=== PATIENT | female | born 1980 | race Caucasian/White ===

== ENCOUNTER → 2023-12-15 11:47 | Outpatient (CLI) | payer OTHER, SELFPAY ==
--- NOTE | 2023-12-15 11:48 | DI.US.S_ITS ---
PROCEDURE: US OB FOLLOW UP INDICATIONS: GROWTH OUTSIDE/PRIOR DATING DATA: IVF 06/06/2023. Working AALIYAH is 02/22/2024 TECHNIQUE: Real-time scanning was performed of the fetus, with image documentation and biometric measurements. COMPARISON: None. FINDINGS: General: A single living intrauterine gestation is present. Presentation: Transverse. Placenta: Placental position is anterior , without previa. Amniotic fluid index: 13 cm, normal range is 5-24 cm. Single deepest vertical pocket is 5 cm. heart rate: 128 beats per minute. Maternal cervical canal: 4.3 cm long. Normal lower limit is 2.5 cm. biometrics: Biparietal diameter: 7.5 cm, 29 weeks and 6 days Head circumference: 27.9 cm, 30 weeks and 4 days Abdominal circumference: 24.7 cm, 29 weeks Femur length: 5.6 cm, 29 weeks and 4 days Clinically estimated gestational age: 30 weeks and 1 day Composite gestational age from present scan: 29 weeks and 5 days Estimated weight and percentile: 1381 g, 15% Other: Not applicable. IMPRESSION: EFW at the lower limit of normal, 15th percentile. Living intrauterine gestation, transverse presentation. Normal RJ. Dictated by: Nathan Kendall M.D. on 12/15/2023 at 12:33 Approved by: Nathan Kendall M.D. on 12/15/2023 at 12:34
== END ==
PROVIDERS: Referring Provider Obstetrics & Gynecology; Visit Provider Obstetrics & Gynecology
DX: Z34.03 Encounter for supervision of normal first pregnancy, third trimester (principal); Z3A.29 29 weeks gestation of pregnancy
CPT/HCPCS: 76816

== ENCOUNTER 2024-01-02 09:50 | Outpatient (CLI) | payer OTHER, SELFPAY | END 2024-01-02 10:30 | disposition home or self-care (01) | LOC: LABOR 10:30 → OB 01-08 11:40 | PROVIDERS: Referring Provider Obstetrics & Gynecology; Visit Provider Obstetrics & Gynecology | DX: O09.813 Supervision of pregnancy resulting from assisted reproductive technology, third trimester (principal); O09.523 Supervision of elderly multigravida, third trimester; Z3A.32 32 weeks gestation of pregnancy | CPT/HCPCS: 59025; G0378; G0379 ==

== ENCOUNTER 2024-01-10 11:56 | Outpatient (CLI) | payer OTHER, SELFPAY ==
--- NOTE | 2024-01-10 13:55 | PM.OBTRLD ---
FORMERLY [facility], [facility] Medical History (Updated 01/10/24 @ 16:07 by Tuan Faye MD) Yeast infection Surgical History (Updated 12/07/23 @ 14:37 by Katrin English, RN) [place] teeth extracted History of ankle surgery History of tonsillectomy and adenoidectomy Family History (Updated 12/07/23 @ 14:43 by Katrin English, RN) Mother Hypothyroidism Hypertension Uncle Diabetes mellitus Sister Hypertension Hypothyroidism Gestational diabetes Father Skin cancer Grandfather Melanoma Social History marital status: number of children: 0 household members: spouse lives independently: Yes caregiver/support person: Yes housing: house pets and animals: Yes (dog) education level: college (bachelor's degree) occupational status: employed (Active duty [employer]) current occupational exposures/hazards: No special cheyanne needs: No travel history: recent (Move from [place]) seatbelt use: always water heater temp set < 120 deg: Yes working smoke detector in home: Yes fire extinguisher in home: No carbon monox detector in home: Yes firearms in home: Yes firearms unloaded and locked: Yes do you feel safe at home: Yes Smoking Status: Former smoker (quit 2017) Tobacco: How many years used: 6 (off and on) second hand exposure: No alcohol intake: former (typically 1-2/week when not , occasionally more) substance use type: does not use during the past year weight has: remained stable (prior to ) well-balanced diet: daily or most days daily servings fruits/ve-4 caffeine: Yes (decaf coffee) Type(s) of exercise: walking frequency: daily Evaluation Evaluation Baseline heart rate: 120 Variability: Moderate (11-25) monitor accelerations: Present Monitor Decelerations: Absent Contraction Frequency (minutes): 0 Diagnosis, Plan/Disposition Plan/Disposition Plan: 43 yo presenting for NST for AMA and IVF NST reactive, reassuring Continue with testing and apts per primary OB OB Disposition: home
== END 2024-01-10 12:40 | disposition home or self-care (01) ==
LOC: LABOR 12:57 → OB 01-14 09:26
PROVIDERS: Referring Provider Obstetrics & Gynecology; Visit Provider Obstetrics & Gynecology
DX: O09.813 Supervision of pregnancy resulting from assisted reproductive technology, third trimester (principal); O09.523 Supervision of elderly multigravida, third trimester; Z3A.33 33 weeks gestation of pregnancy
CPT/HCPCS: 59025; G0378; G0379

== ENCOUNTER 2024-01-16 09:48 | Outpatient (CLI) | payer OTHER, SELFPAY | END 2024-01-16 10:30 | disposition home or self-care (01) | LOC: LABOR 10:01 → OB 01-17 12:50 | PROVIDERS: Referring Provider Obstetrics & Gynecology; Visit Provider Obstetrics & Gynecology | DX: O09.523 Supervision of elderly multigravida, third trimester (principal); O09.813 Supervision of pregnancy resulting from assisted reproductive technology, third trimester; Z3A.34 34 weeks gestation of pregnancy; O36.5930 Maternal care for other known or suspected poor fetal growth, third trimester, not applicable or unspecified | CPT/HCPCS: 59025; 76816; G0378; G0379 ==

== ENCOUNTER → 2024-01-16 11:08 | Outpatient (CLI) | payer OTHER, SELFPAY ==
--- NOTE | 2024-01-16 11:09 | DI.US.S_ITS ---
PROCEDURE: US OB FOLLOW UP INDICATIONS: SGA on prior study 12/15/2023 OUTSIDE/PRIOR DATING DATA: The calculations are made using the working AALIYAH of 02/22/2024. TECHNIQUE: Real-time scanning was performed of the fetus, with image documentation and biometric measurements. Endovaginal scanning: Not performed COMPARISON: [facility], OB FOLLOW UP, 12/15/2023, 12:08. FINDINGS: General: A single living intrauterine gestation is present. Presentation: Transverse. Placenta: Placental position is anterior, left , without previa. Amniotic fluid index: 15.9 cm, normal range is 5-24 cm. Single deepest vertical pocket is 5.1 cm. heart rate: 118 beats per minute. Maternal cervical canal: 4.6 cm long. Normal lower limit is 2.5 cm. biometrics: Biparietal diameter: 8.2 cm, 32 weeks 6 days Head circumference: 30.6 cm, 34 weeks 1 day Abdominal circumference: 29 cm, 33 weeks 0 days Femur length: 6.4 cm, 33 weeks 1 day Clinically estimated gestational age: 34 weeks 5 days Composite gestational age from present scan: 33 weeks 2 days Estimated weight and percentile: 2130 g, 11th percentile Other: Not applicable. IMPRESSION: Single living intrauterine at 34 weeks 5 days, AALIYAH of 02/22/2024. Estimated weight of 2130 g, 11th percentile. We strive to produce accurate, complete, and clear reports of imaging services. To assist us in improving patient care, this report was composed using standard report templates and voice recognition software. Therefore, it may contain abnormal punctuation, insertions and/or omissions. Occasional wrong-word or sound-alike substitutions may occur. Though we review the report and make efforts to correct it, we do recommend that the report be read carefully in proper context to recognize any text inaccuracies. Dictated by: Joss Klein M.D. on 01/16/2024 at 15:52 Approved by: Joss Klein M.D. on 01/16/2024 at 15:54
== END ==
PROVIDERS: Referring Provider Obstetrics & Gynecology; Visit Provider Obstetrics & Gynecology
DX: O36.5930 Maternal care for other known or suspected poor fetal growth, third trimester, not applicable or unspecified (principal); Z3A.34 34 weeks gestation of pregnancy
CPT/HCPCS: 76816

== ENCOUNTER → 2024-01-24 10:51 | Outpatient (CLI) | payer OTHER, SELFPAY ==
[2024-01-25 11:44] LABS: Strep Grp B PCR NEG for Grp B Strep
== END ==
PROVIDERS: Visit Provider Obstetrics & Gynecology
DX: Z34.83 Encounter for supervision of other normal pregnancy, third trimester (principal); Z3A.36 36 weeks gestation of pregnancy
CPT/HCPCS: 87653

== ENCOUNTER 2024-01-24 10:59 | Outpatient (CLI) | payer OTHER, SELFPAY | END 2024-01-24 12:46 | disposition home or self-care (01) | LOC: LABOR 11:23 → OB 01-25 11:39 | PROVIDERS: Referring Provider Obstetrics & Gynecology; Visit Provider Obstetrics & Gynecology | DX: O09.523 Supervision of elderly multigravida, third trimester (principal); O09.813 Supervision of pregnancy resulting from assisted reproductive technology, third trimester; Z3A.35 35 weeks gestation of pregnancy | CPT/HCPCS: 59025; 87653; G0378; G0379 ==

== ENCOUNTER 2024-01-26 09:32 | Outpatient (CLI) | payer OTHER, SELFPAY | END 2024-01-26 10:13 | disposition home or self-care (01) | LOC: LABOR 09:49 → OB 01-29 06:27 | PROVIDERS: Referring Provider Obstetrics & Gynecology; Visit Provider Obstetrics & Gynecology | DX: O09.523 Supervision of elderly multigravida, third trimester (principal); O09.813 Supervision of pregnancy resulting from assisted reproductive technology, third trimester; Z3A.36 36 weeks gestation of pregnancy | CPT/HCPCS: 59025; G0378; G0379 ==

== ENCOUNTER 2024-01-30 09:48 | Outpatient (CLI) | payer OTHER, SELFPAY | END 2024-01-30 10:19 | disposition home or self-care (01) | LOC: LABOR 10:04 → OB 02-06 08:28 | PROVIDERS: Referring Provider Obstetrics & Gynecology; Visit Provider Obstetrics & Gynecology | DX: O09.523 Supervision of elderly multigravida, third trimester (principal); O09.813 Supervision of pregnancy resulting from assisted reproductive technology, third trimester; Z3A.36 36 weeks gestation of pregnancy | CPT/HCPCS: 59025; G0378; G0379 ==

== ENCOUNTER 2024-02-02 09:49 | Outpatient (CLI) | payer OTHER, SELFPAY | END 2024-02-02 10:31 | disposition home or self-care (01) | LOC: LABOR 10:15 → OB 02-06 08:32 | PROVIDERS: Referring Provider Obstetrics & Gynecology; Visit Provider Obstetrics & Gynecology | DX: O09.523 Supervision of elderly multigravida, third trimester (principal); O09.813 Supervision of pregnancy resulting from assisted reproductive technology, third trimester; Z3A.37 37 weeks gestation of pregnancy | CPT/HCPCS: 59025; G0378; G0379 ==

== ENCOUNTER 2024-02-06 09:35 | Observation (INO) | payer OTHER, SELFPAY ==
--- NOTE | 2024-02-06 09:52 | DI.US.S_ITS ---
PROCEDURE: US OB LIMITED INDICATIONS: small baby OUTSIDE/PRIOR DATING DATA: IVF date: 06/06/2023 The calculations are made using the working AALIYAH of 02/22/2024 TECHNIQUE: Real-time scanning was performed of the fetus, with image documentation and biometric measurements. Endovaginal scanning: Not performed COMPARISON: [facility], OB FOLLOW UP, 12/15/2023, 12:08. [facility], OB FOLLOW UP, 01/16/2024, 11:19. FINDINGS: General: A single living intrauterine gestation is present. Presentation: Vertex Placenta: Placental position is anterior, without previa. Amniotic fluid index: 8.1 cm, normal range is 5-24 cm. Single deepest vertical pocket is 4.6 cm. heart rate: 153 beats per minute. Maternal cervical canal: Not well seen biometrics: Biparietal diameter: 8.7 cm, 35 weeks, 2 days. Head circumference: 32.5 cm, 36 weeks, 6 days. Abdominal circumference: 31.1 cm, 35 weeks, 0 day. Femur length: 6.8 cm, 35 weeks, 0 day. Clinically estimated gestational age: 37 weeks, 5 days Composite gestational age from present scan: 35 weeks, 4 days Estimated weight and percentile: 2625 g, 9%. IMPRESSION: 1. Single live intrauterine gestation with fetus in vertex presentation. heart rate is 153 beats per minute. Normal RJ at 8.1 cm. 2. Estimated gestational age is now at 9%. Estimated weight is 2625 g. We strive to produce accurate, complete, and clear reports of imaging services. To assist us in improving patient care, this report was composed using standard report templates and voice recognition software. Therefore, it may contain abnormal punctuation, insertions and/or omissions. Occasional wrong-word or sound-alike substitutions may occur. Though we review the report and make efforts to correct it, we do recommend that the report be read carefully in proper context to recognize any text inaccuracies. Dictated by: Elton Houston M.D. on 02/06/2024 at 11:20 Approved by: Elton Houston M.D. on 02/06/2024 at 11:25
--- NOTE | 2024-02-06 10:43 | PM.OBTRLD ---
Visit Information Visit Information Date of evaluation: 02/06/24 Primary OB Provider: Amena Larry On-call OB Provider: Tuan Faye Reason for Evaluation: Yes non-stress test Comments/Additional reasons for admission: 37+6 wk IVF preg, AMA, SGA/IUGR for NST and growth US. [facility] Medical History (Updated 01/10/24 @ 16:07 by Tuan Faye MD) Yeast infection Surgical History (Updated 12/07/23 @ 14:37 by Katrin English, RN) [place] teeth extracted History of ankle surgery History of tonsillectomy and adenoidectomy Family History (Updated 12/07/23 @ 14:43 by Katrin English, RN) Mother Hypothyroidism Hypertension Uncle Diabetes mellitus Sister Hypertension Hypothyroidism Gestational diabetes Father Skin cancer Grandfather Melanoma Social History marital status: number of children: 0 household members: spouse lives independently: Yes caregiver/support person: Yes housing: house pets and animals: Yes (dog) education level: college (bachelor's degree) occupational status: employed (Active duty [employer]) current occupational exposures/hazards: No special cheyanne needs: No travel history: recent (Move from [place]) seatbelt use: always water heater temp set < 120 deg: Yes working smoke detector in home: Yes fire extinguisher in home: No carbon monox detector in home: Yes firearms in home: Yes firearms unloaded and locked: Yes do you feel safe at home: Yes Smoking Status: Former smoker (quit 2017) Tobacco: How many years used: 6 (off and on) second hand exposure: No alcohol intake: former (typically 1-2/week when not , occasionally more) substance use type: does not use during the past year weight has: remained stable (prior to ) well-balanced diet: daily or most days daily servings fruits/ve-4 caffeine: Yes (decaf coffee) Type(s) of exercise: walking frequency: daily Objective Imaging OB Growth US: Radiologist's impression: FINDINGS: General: A single living intrauterine gestation is present. Presentation: Vertex Placenta: Placental position is anterior, without previa. Amniotic fluid index: 8.1 cm, normal range is 5-24 cm. Single deepest vertical pocket is 4.6 cm. heart rate: 153 beats per minute. Maternal cervical canal: Not well seen biometrics: Biparietal diameter: 8.7 cm, 35 weeks, 2 days. Head circumference: 32.5 cm, 36 weeks, 6 days. Abdominal circumference: 31.1 cm, 35 weeks, 0 day. Femur length: 6.8 cm, 35 weeks, 0 day. Clinically estimated gestational age: 37 weeks, 5 days Composite gestational age from present scan: 35 weeks, 4 days Estimated weight and percentile: 2625 g, 9%. IMPRESSION: 1. Single live intrauterine gestation with fetus in vertex presentation. heart rate is 153 beats per minute. Normal RJ at 8.1 cm. 2. Estimated gestational age is now at 9%. Estimated weight is 2625 g. Evaluation Evaluation Baseline heart rate: 135 Variability: Moderate (11-25) monitor accelerations: Present Monitor Decelerations: Absent Category of Tracing: Reactive Status: Category l Diagnosis, Plan/Disposition Final Diagnosis (1) SGA (small for gestational age), , affecting care of mother, antepartum: Status: Acute (2) Advanced maternal age (AMA), 40 years or greater: Status: Acute (3) conceived through in vitro fertilization: Status: Acute Plan/Disposition Plan: Continue twice weekly NSTs with weekly EFW/RJ. Her next ultrasound is scheduled for 02/12/2024 and she will return 02/08 for her next NST. Labor precautions and continued close observation of activity. Follow-up scheduled for her next [facility] visit. OB Disposition: home
== END 2024-02-06 10:40 | disposition home or self-care (01) ==
PROVIDERS: Admitting Provider Obstetrics & Gynecology; Referring Provider Obstetrics & Gynecology; Visit Provider Obstetrics & Gynecology
DX: O09.523 Supervision of elderly multigravida, third trimester (principal); O36.5930 Maternal care for other known or suspected poor fetal growth, third trimester, not applicable or unspecified; O09.813 Supervision of pregnancy resulting from assisted reproductive technology, third trimester; Z3A.37 37 weeks gestation of pregnancy
CPT/HCPCS: 59025; 76815; G0378; G0379

== ENCOUNTER 2024-02-09 08:44 | Outpatient (CLI) | payer OTHER, SELFPAY | END 2024-02-09 09:24 | disposition home or self-care (01) | LOC: OB 02-12 06:19 | PROVIDERS: Referring Provider Obstetrics & Gynecology; Visit Provider Obstetrics & Gynecology | DX: O09.523 Supervision of elderly multigravida, third trimester (principal); O09.813 Supervision of pregnancy resulting from assisted reproductive technology, third trimester; Z3A.38 38 weeks gestation of pregnancy | CPT/HCPCS: 59025; G0378; G0379 ==

== ENCOUNTER → 2024-02-12 14:47 | Outpatient (CLI) | payer OTHER, SELFPAY ==
--- NOTE | 2024-02-12 14:48 | DI.US.S_ITS ---
PROCEDURE: US OB LIMITED INDICATIONS: Interval growth, Known SGA OUTSIDE/PRIOR DATING DATA: The calculations are made using the AALIYAH of 02/22/2024. TECHNIQUE: Real-time scanning was performed of the fetus, with image documentation and biometric measurements. Endovaginal scanning: Not performed COMPARISON: [facility], OB LIMITED, 02/06/2024, 10:18. FINDINGS: General: A single living intrauterine gestation is present. Presentation: Vertex. Placenta: Placental position is anterior , without previa. Succentriate placental lobe with cord insertion between the 2 lobes. Amniotic fluid index: 8.4 cm, normal range is 5-24 cm. Single deepest vertical pocket is 2.8 cm. heart rate: 139 beats per minute. Maternal cervical canal: 3.7 cm long. Normal lower limit is 2.5 cm. biometrics: Biparietal diameter: 8.6 cm, 34 weeks 4 days Head circumference: 31.2 cm, 35 weeks 5 days Abdominal circumference: 30.5 cm, 34 weeks 3 days Femur length: 7.0 cm, 35 weeks 6 days Clinically estimated gestational age: 38 weeks 4 days Composite gestational age from present scan: 35 weeks 1 day Estimated weight and percentile: 2005 and 66 g, 3% Other: Cord Dopplers range from 1.8-3.2.. IMPRESSION: 1. Single live intrauterine consistent with 35 weeks and 1 day. 2. Estimated weight is in the 3rd percentile. 3. Succentriate placental lobe with cord insertion between the 2 lobes. We strive to produce accurate, complete, and clear reports of imaging services. To assist us in improving patient care, this report was composed using standard report templates and voice recognition software. Therefore, it may contain abnormal punctuation, insertions and/or omissions. Occasional wrong-word or sound-alike substitutions may occur. Though we review the report and make efforts to correct it, we do recommend that the report be read carefully in proper context to recognize any text inaccuracies. Dictated by: Jarrell Kelly M.D. on 02/12/2024 at 16:33 Approved by: Jarrell Kelly M.D. on 02/12/2024 at 16:37
== END ==
PROVIDERS: Referring Provider Obstetrics & Gynecology; Visit Provider Obstetrics & Gynecology
DX: O36.5930 Maternal care for other known or suspected poor fetal growth, third trimester, not applicable or unspecified (principal); O43.193 Other malformation of placenta, third trimester; Z3A.35 35 weeks gestation of pregnancy
CPT/HCPCS: 76815; 93975

== ENCOUNTER 2024-02-13 10:23 | Inpatient (IN) | payer OTHER, SELFPAY ==
[2024-02-13 11:14] LABS: Add Manual Diff / Slide Review NO; Basophils Absolute Auto 100 /uL (0-100); Basophils Percent Auto 0.6 % (0-2); Eosinophils Absolute Auto 100 /uL (0-450); Eosinophils Percent Auto 0.7 % (2-4); Hematocrit 34.7 % (36-46); Hemoglobin 11.4 g/dL (12.0-16.0); Lymphocytes Absolute Auto 1800 /uL (1100-4500); Lymphocytes Percent Auto 18.9 % (25-40); Mean Corpuscular HGB Conc 32.7 % (30-36); Mean Corpuscular Hemoglobin 27.8 PG (26-34); Mean Corpuscular Volume 84.8 fL (80-100); Monocytes Absolute Auto 700 /uL (0-900); Monocytes Percent Auto 6.9 % (3-14); Neutrophils Absolute Auto 7000 /uL (1500-7000); Neutrophils Percent Auto 72.9 % (50-75); Platelet Count 346 X10^3/uL (150-400); Red Blood Cell Count 4.09 X10^6/uL (4.0-5.2); Red Cell Distribution Width 15.4 % (11.6-14.8); White Blood Cell Count 9.6 X10^3/uL (4.5-11.0)
[2024-02-13 11:32] LABS: Alanine Aminotransferase 33 IU/L (<35); Albumin 3.3 g/dL (3.5-5.0); Alkaline Phosphatase 159 U/L (38-126); Aspartate Aminotransferase 33 IU/L (14-36); BUN Creatinine Ratio 10.6 (6-22); Bilirubin Total 0.6 mg/dL (0.2-1.3); Blood Urea Nitrogen 9 mg/dL (7-17); Calcium 9.3 mg/dL (8.4-10.2); Carbon Dioxide 19 mmol/L (22-32); Chloride 108 mmol/L (98-107); Estimated Glomerular Filt Rate > 60 mL/min (>60); Globulin 3.2 g/dL (1.7-4.1); Glucose 86 mg/dL (70-100); HEMOLYSIS < 15 (0-50); Potassium 3.7 mmol/L (3.4-5.1); Sodium 134 mmol/L (137-145); Total Protein 6.5 g/dL (6.3-8.2)
--- NOTE | 2024-02-13 11:40 | PM.OBHP.IH.1 ---
OB HPI Date/Time Date of admission: 02/13/24 Date Patient Seen: 02/13/24 Time Patient Seen: 11:00 History of Present Condition Chief complaint: IOL AALIYAH Calculator Estimated Delivery Date Method Current WG Current Estimate 02/22/24 Conception 38w 5d Other Estimates 02/22/24 Manual 38w 5d IVF 5-day embryo transferred on 06/06/23 Estimated Gestational Age (weeks): 38w5d : 3 Para: 0 Narrative: 43yo at 38w5d by IVF dating presents for admission, medically indicated IOL in setting of progressive IUGR now <5th% at term, new persistent mild range BP. Patient presented to office for routine PNC with new elevated BP at time of this assessment (140s/90s), endorsement of persistent mild bi-temporal WONG for approximately 5-7d. Review of recent DI US significant for progressive IUGR with indication for delivery (<5th% without abnormal dopplers) and new documentation of atypical cord insertion. Patient was counseled on strong recommendation to proceed with IOL today and subsequently presented to L&D for admission. +FM, denies VB, LOF, dysuria, ctx, vision changes, states WONG is very mild. Persistent mild range BP on arrival with initiation of oral nifedipine, PIH labs wnl (Pr/Cr not yet resulted at time of documentation) care: good care Dating criteria OB: other (day 5 embryo transfer 06/06/23) Ultrasounds: normal 1st trimester US and abnormal US findings Abnormal ultrasound findings: progressive IUGR, last interval US 02/11: EFW 2005g, 3rd% new documentation of succentriate placenta with cord insertion between the two lobes Obstetrical complications: growth restriction Medical complications OB: other (AMA) External History Prior Pregnancies: 2 prior SAB : 3 Para: 0 Indications Indication for induction OB: gestational HTN/pre-eclampsia, intra-uterine growth restriction and other (AMA, IVF ) Preadmission Labs Last OB Lab Results: Hct 34.7 % (36-46) L 02/13/24 10:45 Hgb 11.4 g/dL (12.0-16.0) L 02/13/24 10:45 Group B Strep (PCR) Neg for grp b strep 01/24/24 10:45 -: Chlamydia screen: negative, Gonorrhea screen: negative and Urine: negative -: PAP smear: Normal Genetic Screens: Cell-free DNA: Normal and Alpha-fetoprotein: Normal External Labs -: Urine: negative Prior (ies) Past Pregnancies Del. Date GA/Weeks Labor Lgth Wt Sex Route Outcome Anesthesia Place Delv Breastfeed Preg Comp Name 07/14/06 ~7 spontaneous 02/13/21 ~7 spontaneous Delivery Date: 07/14/06 Last Updated by: Katrin English RN passed spontaneously, no complications Delivery Date: 02/13/21 Last Updated by: Katrin English RN passed spontaneously, no complications Evaluation Evaluation Baseline heart rate: 130 Variability: Moderate (11-25) monitor accelerations: Present Monitor Decelerations: Absent Category of Tracing: Reactive Status: Category l Dilation (cm): 0 Effacement (%): 50 Dilation: Closed Effacement: 40-50% station: -4 Position of cervix: posterior Consistency: soft Bassett score: 3 PFS Medical History (Updated 01/10/24 @ 16:07 by Tuan Faye MD) Yeast infection Surgical History (Updated 12/07/23 @ 14:37 by Katrin English RN) [place] teeth extracted History of ankle surgery History of tonsillectomy and adenoidectomy Family History (Updated 12/07/23 @ 14:43 by Katrin English RN) Mother Hypothyroidism Hypertension Uncle Diabetes mellitus Sister Hypertension Hypothyroidism Gestational diabetes Father Skin cancer Grandfather Melanoma Social History marital status: number of children: 0 household members: spouse lives independently: Yes caregiver/support person: Yes housing: house pets and animals: Yes (dog) education level: college (bachelor's degree) occupational status: employed (Active duty [employer]) current occupational exposures/hazards: No special cheyanne needs: No travel history: recent (Move from [place]) seatbelt use: always water heater temp set < 120 deg: Yes working smoke detector in home: Yes fire extinguisher in home: No carbon monox detector in home: Yes firearms in home: Yes firearms unloaded and locked: Yes do you feel safe at home: Yes Smoking Status: Former smoker (quit 2017) Tobacco: How many years used: 6 (off and on) second hand exposure: No alcohol intake: former (typically 1-2/week when not , occasionally more) substance use type: does not use during the past year weight has: remained stable (prior to ) well-balanced diet: daily or most days daily servings fruits/ve-4 caffeine: Yes (decaf coffee) Type(s) of exercise: walking frequency: daily Meds Home Medications and Allergies Home Medications Medication Instructions Recorded Confirmed Type vit no.95-ferrous 1 tab PO DAILY 12/07/23 02/13/24 History fumarate 28 mg-folic acid 800 mcg tablet ( Multivitamins) famotidine 20 mg tablet 20 mg PO BEDTIME #90 tabs 12/11/23 02/13/24 Rx ferrous gluconate 324 mg (37.5 mg 324 mg PO DAILY #90 tabs 12/11/23 02/13/24 Rx iron) tablet breast pump #1 ea 01/19/24 02/13/24 Rx fluconazole 150 mg tablet 150 mg PO Q3D 2 doses #2 tabs 02/06/24 02/13/24 Rx Allergies Allergy/AdvReac Type Severity Reaction Status Date / Time No Known Drug Allergies Allergy Unverified 02/13/24 09:52 Review of Systems Review of Systems ROS: Yes All systems reviewed with the patient and are negative except as otherwise documented OB Exam Vital signs Blood Pressure: 144/94 Pulse Rate: 68 Temperature: 98.4 F HENMT Head: normal to inspection Mouth: oral mucosae normal Resp Effort & Inspection: normal respiratory effort and able to speak in complete sentences Cardio Rate: regular rate Rhythm: regular rhythm Extremities Lower extremity: Yes normal to inspection GI Inspection: normal to inspection Other: gravid, zuhair cephalic, 5-6# External Female Exam: Yes normal external appearance Objective Labs 02/13/24 10:45 02/13/24 10:45 Labs: Laboratory Results - last 24 hr 02/13/24 10:45 WBC 9.6 RBC 4.09 Hgb 11.4 L Hct 34.7 L MCV 84.8 MCH 27.8 MCHC 32.7 RDW 15.4 H Plt Count 346 Neut % (Auto) 72.9 Lymph % (Auto) 18.9 L [place] % (Auto) 6.9 Eos % (Auto) 0.7 L Baso % (Auto) 0.6 Neut # (Auto) 7000 Lymph # (Auto) 1800 [place] # (Auto) 700 Eos # (Auto) 100 Baso # (Auto) 100 Sodium 134 L Potassium 3.7 Chloride 108 H Carbon Dioxide 19 L BUN 9 Creatinine 0.85 Estimated GFR > 60 BUN/Creatinine Ratio 10.6 Glucose 86 Uric Acid 6.0 Calcium 9.3 Total Bilirubin 0.6 AST 33 ALT 33 Alkaline Phosphatase 159 H Total Protein 6.5 Albumin 3.3 L Globulin 3.2 Albumin/Globulin Ratio 1.0 Assessment and Plan Assessment and Plan Assessment and Plan narrative: 43yo at 38w5d by IVF dating, admission for IOL in setting of GHTN vs PIH at term, progressive IUGR (EFW <5th%) IOL Maternal VSS, Cat 1 tracing cervidil placed for purposes of cervical ripening, patient and partner counseled at length of higher chance of intolerance to labor in setting of known IUGR, atypical cord insertion with low threshold to proceed to delivery pending clinical course PNL as above, GBS neg Elevated maternal BP PIH labs resulted wnl, Pr/Cr pending and will follow PO nifedipine 30mg XR with appropriate response, continue serial BP monitoring, continue patient is consented for vaginal, vaginal operative and delivery as well as transfusion of blood products as medically indicated anticipate vaginal delivery Time-Based Coding :: [TOTAL MINUTES] spent with patient and on the chart (including review of chart, obtaining history, exam, reviewing outside data, placing orders, documenting exam and treatment plan, and counseling patient) on [DATE].
[2024-02-13] MEDS: NIFEdipine 30 MG TAB ER PO (11:42)
[2024-02-13] MEDS: DINOPROSTONE VAG (CERVIDIL) 10 MG VAG (11:57)
[2024-02-13 12:39] VITALS: BP 144/94; PULSE 68; TEMP 36.9
[2024-02-13 12:41] LABS: Creatinine Urine Random 39.69 mg/dL; Protein (Total) Urine Random 11 mg/dL (0-12); Protein Creatinine Ratio Urine 0.27 GRAM/24H
[2024-02-14] MEDS: LACTATED RINGERS 1,000 ML 100 ML IV ×2 (00:17→13:35)
[2024-02-14] MEDS: OXYTOCIN PREMIX 30 UNIT/500 ML PLAST..BAG IV (00:19)
[2024-02-14] MEDS: CALCIUM CARBONATE 500 MG TAB 1000 MG PO (01:21)
[2024-02-14] MEDS: ONDANSETRON 4 MG/2 ML INJ IV (02:35)
--- NOTE | 2024-02-14 04:01 | PM.AN.REGBLK ---
[facility] <Tanya Christine CRNA - Last Filed: 02/14/24 04:06> Pre-procedure Procedure: Continuous Lumbar Epidural for L&D Attending OB provider: Amena Larry PMH/ROS narrative: IOL for IUGR, AMA requesting epidural. Hypertension and GERD with but otherwise ROS negative. PSH/Anesthesia history narrative: None Exam narrative: Mall II, good airway ASA Class: II Labs: Hct 34.7 % (36-46) L 02/13/24 10:45 Plt Count 346 X10^3/uL (150-400) 02/13/24 10:45 Medications: Current Medications Generic Name Dose Route Start Last Admin Trade Name Freq PRN Reason Stop Dose Admin Calcium Carbonate 1,000 mg 02/13/24 11:35 02/14/24 01:21 Calcium Carbonate 500 Mg Tab PO 1,000 mg Q2HR PRN Administration Dyspepsia Carboprost Tromethamine 250 mcg 02/13/24 11:35 Carboprost 250 Mcg/Ml Ampul IM Q90M PRN Bleeding Oxytocin/Lactated Ringer's 30 unit in 500 mls @ 200 mls/hr 02/13/24 11:35 Oxytocin Premix IV CONT PRN Bleeding Protocol Tranexamic Acid 1,000 mg/ 100 mls @ 600 mls/hr 02/13/24 11:35 Sodium Chloride IV NOW PRN Bleeding Oxytocin/Lactated Ringer's 30 unit in 500 mls @ 2 mls/hr 02/13/24 23:45 02/14/24 00:19 Oxytocin Premix IV 2 milliunit/min TITRATE AKUA 2 mls/hr Administration Protocol 2 MILLIUNIT/MIN Lidocaine HCl 20 ml 02/13/24 11:35 Lidocaine 1% 20 Ml INJ INTRA-OP PRN Post Delivery Methylergonovine Maleate 0.2 mg 02/13/24 11:35 Methylergonovine 0.2 Mg Tablet PO Q6HR PRN Heavy Bleeding Methylergonovine Maleate 0.2 mg 02/13/24 11:35 Methylergonovine 0.2 Mg/Ml Vial IM NOW PRN Bleeding Mineral Oil 30 ml 02/13/24 11:35 Mineral Oil 30 Ml Udc TOP PRN PRN Version Misoprostol 800 mcg 02/13/24 11:35 Misoprostol 200 Mcg Tablet NC NOW PRN Bleeding Misoprostol 400 mcg 02/13/24 11:35 Misoprostol 200 Mcg Tablet SL NOW PRN Bleeding Naloxone HCl 0.2 mg 02/13/24 11:35 Naloxone 0.4 Mg/Ml Vial IV Q2MIN PRN Opiate Reversal Nifedipine 30 mg 02/13/24 11:30 02/13/24 11:42 Nifedipine 30 Mg Tab Er PO 30 mg DAILY AKUA Administration Ondansetron HCl 4 mg 02/13/24 11:35 02/14/24 02:35 Ondansetron 4 Mg/2 Ml Inj IV 4 mg Q4HR PRN Administration Nausea And Vomiting Oxytocin 10 unit 02/13/24 11:35 Oxytocin 10 Unit/Ml Vial IM NOW PRN Bleeding Allergies: Allergies Allergy/AdvReac Type Severity Reaction Status Date / Time No Known Drug Allergies Allergy Unverified 02/13/24 09:52 Procedure Insertion date: 02/14/24 Insertion time: 03:34 Prep/Local: 1% lidocaine (chlorhex skin prep, dry x 3 min) Interspace: L4-5 Patient position: sitting Needle: 17 gauge Tuohy Loss of resistance with: saline JOLENE at (cm): 7 Catheter placed at SKIN (cm): 13 Catheter in SPACE (cm): 6 Sensory level: T10 Insertion: No CSF, No Blood, No Paresthesia with insertion, No Paresthesia with injection and No Test dose reaction Initial Medications TEST DOSE time: 03:43 BOLUS DOSE time: 03:52 BOLUS DOSE (mL): 5 BOLUS DOSE med: other (pump solution) Infusion Initial rate (mL/hr): 8 Post-procedure Anesthesia date START: 02/14/24 Anesthesia time START: 03:34 <Michelle Sánchez CRNA - Last Filed: 02/16/24 11:07> Infusion Subsequent interventions: 1300: Rounded to check on patient before leaving facility. Pitocin gtt turned off by nursing as patient has not dilated any further. She is comfortable. Her rate is 6mL/hr. She denies pain. She has cold sensation to L4 dermatome level. Strong motor BLE. Ping Sánchez CRNA <Iraida Ann DO - Last Filed: 02/15/24 22:00> Infusion Subsequent interventions: 02/14/24 1300: Rounded to check on patient before leaving facility. Pitocin gtt turned off by nursing as patient has not dilated any further. She is comfortable. Her rate is 6mL/hr. She denies pain. She has cold sensation to L4 dermatome level. Strong motor BLE. -Miguel Sánchez CRNA 02/15/24 1001: Pt reports contraction pain 7/10, and pushed PCEA a few minutes ago. Able to move BLE well. Epidural pump running at 6 ml/hr. Gave pt clinician bolus via pump and increased rate to 10 ml/hr. - Eli BLANK 02/15/24 1145: Reports increase in contraction pain- 5cc .25% marcaine epidural bolus. Brigid Elliott CRNA 02/15/24 1525: Pt reports contraction pain 10+; moving BLE well. Reports last injection worked well for a while and she was able to take a nap for an hour. Increased infusion to 12 ml/hr and bolused with total of 8 ml of 0.25% Marcaine PF. Eli BLANK 02/15/24 2105: Proceeding to for failure to progress. Eli BLANK Post-procedure Anesthesia date END: 02/15/24 Anesthesia time END: 21:08 Post-procedure Anesthesia Assessment: Yes CV function: HR/BP stable, Yes Resp function: RR/sat/airway adequate, Yes Post-op hydration adequate, Yes Pain control adequate, Yes Nausea & vomiting absent, Yes Temperature > 36 C, Yes Mental status appropriate and No Anesthesia complications <Alla Elliott CRNA - Last Filed: 02/15/24 11:50> Initial Medications BOLUS DOSE med: other (pump solution) Infusion Subsequent interventions: 02/14/24 1300: Rounded to check on patient before leaving facility. Pitocin gtt turned off by nursing as patient has not dilated any further. She is comfortable. Her rate is 6mL/hr. She denies pain. She has cold sensation to L4 dermatome level. Strong motor BLE. -Miguel Sánchez CRNA 02/15/24 1001: Pt reports contraction pain 7/10, and pushed PCEA a few minutes ago. Able to move BLE well. Epidural pump running at 6 ml/hr. Gave pt clinician bolus via pump and increased rate to 10 ml/hr. - Eli 02/15/24 1145: Reports increase in contraction pain- 5cc .25% marcaine epidural bolus
[2024-02-14] MEDS: NIFEdipine 30 MG TAB ER PO (08:55)
--- NOTE | 2024-02-14 09:01 | PM.OBPNLAB ---
Date/Time Date Patient Seen: 02/14/24 Time Patient Seen: 06:50 Pain Control Pain control: epidural Pelvic Exam Dilation (cm): 1 Effacement (%): 50 station: -3 Amniotic membrane status: Leaking Contractions Pitocin rate (mU/min): 16 Status status: Category l Heart Rate Baseline: 140 Monitor Accelerations: Present Monitor Decelerations: Absent Monitor Variability: Moderate Assessment and Plan Assessment: induction ongoing Comments: 43yo at 38+6wks admitted for IOL on 02/12 due to newly diagnosed FGR and gHTN. She received cervidil which was removed at midnight, at which time she also ruptured. She was started on pitocin, and I placed a soria bulb at 7am, however upon traction the bulb burst. Unable to replace it as I was called to another patient room. Pitocin had been turned down to 2mU/min when soria bulb was placed. -continue to titrate pitocin to achieve a regular contraction pattern -reassess later this morning for labor progress I signed this patient over to Dr. Sanford at 8:30am.
[2024-02-14] MEDS: PANTOPRAZOLE DR 40 MG TABLET PO (11:14)
[2024-02-14] MEDS: CEFAZOLIN 2 GM/100 ML PREMIX 100 ML IV (13:35)
[2024-02-14] MEDS: miSOPROStoL 25 MCG TABLET 50 MCG PO ×3 (13:47→22:34)
--- NOTE | 2024-02-14 17:30 | PM.OBPNLAB ---
Date/Time Date Patient Seen: 02/14/24 Time Patient Seen: 10:30 Pain Control Pain control: epidural Comments: Assuming care of patient. 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 SROM at 2330 with clear fluid. Epidural for pain management. GBS negative. Patient received one dose of Cervidil last night. Removed at 0830 am. Pelvic Exam Dilation (cm): 1 Effacement (%): 50 station: -3 Amniotic membrane status: Leaking Comments: Deferred new VE, this based on Dr. Cm at 0830 Contractions Contractions on admission: none Monitor mode: External Pitocin rate (mU/min): 9 Contraction frequency (min): 4 Contraction duration (min): 1 Contraction pattern: Regular Contraction intensity: Mild Status status: Category l Heart Rate Baseline: 135 Monitor Accelerations: Present Monitor Decelerations: Absent Monitor Variability: Moderate Assessment and Plan Assessment: induction ongoing Comments: Assessment: Early labor at 38+6 after cervical ripening with Cervidil SROM at 11 hours, no s/s of chorio Plan: Continue Pitocin for now Will begin antibiotics at 18 hours ruptured membranes Will consider d/c Pitocin and begin Misoprostol after cervix check at 1230 Expectant management
--- NOTE | 2024-02-14 17:38 | PM.OBPNLAB ---
Date/Time Date Patient Seen: 02/14/24 Time Patient Seen: 12:45 Pain Control Pain control: epidural Comments: Pt comfortable with contractions Pelvic Exam Dilation (cm): 1 Effacement (%): 50 station: -3 Amniotic membrane status: Leaking Contractions Contractions on admission: none Monitor mode: External Pitocin rate (mU/min): 12 Contraction frequency (min): 4 Contraction duration (min): 1 Contraction pattern: Regular Contraction intensity: Moderate Status status: Category l Heart Rate Baseline: 140 Monitor Accelerations: Present Monitor Decelerations: Absent Monitor Variability: Moderate Assessment and Plan Assessment: induction ongoing Comments: Assessment: Unfavorable cervix, no change SROM at 13 hours, no s/s of chorio Plan: Stop Pitocin Begin Mispostol orally 50mcg q 4 hours once ctx's space out Expectant management
--- NOTE | 2024-02-14 17:48 | PM.OBPNLAB ---
Date/Time Date Patient Seen: 02/14/24 Time Patient Seen: 17:48 Pain Control Pain control: epidural Comments: Pitocin off, received one dose of Misoprostol Pelvic Exam Effacement (%): 50 station: -3 Amniotic membrane status: Leaking Comments: Deferred VE Contractions Contractions on admission: none Monitor mode: External Pitocin rate (mU/min): 0 Contraction frequency (min): 10 Contraction pattern: Regular Contraction intensity: Mild Status status: Category l Heart Rate Baseline: 135 Monitor Accelerations: Present Monitor Decelerations: Absent Monitor Variability: Moderate Assessment and Plan Assessment: induction ongoing Comments: Continue Misoprostol until cervix favorable and then restart Pitocin
[2024-02-14] MEDS: FENT 2MCG/ML BUPIV 0.125% EPI 200 MCG/100 ML PLAST..BAG 8 MCG EPIDURAL (18:24)
--- NOTE | 2024-02-14 21:09 | PM.OBPNLAB ---
Date/Time Date Patient Seen: 02/14/24 Time Patient Seen: 21:09 Pain Control Pain control: epidural Comments: S/P 2 doses of Misoprostol today. Feeling some pressure. No pain. Pelvic Exam Dilation (cm): 2 Effacement (%): 85 station: -1 Amniotic membrane status: Leaking Comments: medium Contractions Contractions on admission: none Monitor mode: External Contraction pattern: Irregular Contraction intensity: Mild Status status: Category l Heart Rate Baseline: 125 Monitor Accelerations: Present Monitor Decelerations: Absent Monitor Variability: Moderate Assessment and Plan Assessment: induction ongoing Comments: Assessment: 43 year old at 38+5 wks with more favorable cervix No s/s of chorio Plan: One more dose of Misoprostol at 2230, then assess at 0230 for initiation of Pitocin Continue to monitor temp Continue antibiotics
[2024-02-14] MEDS: CEFAZOLIN VIAL 1 GM in SODIUM CHLORIDE 0.9% 100 ML IV (21:40)
[2024-02-15] MEDS: LACTATED RINGERS 1,000 ML 100 ML IV ×3 (03:46→21:52)
[2024-02-15] MEDS: OXYTOCIN PREMIX 30 UNIT/500 ML PLAST..BAG IV (03:47)
[2024-02-15] MEDS: CEFAZOLIN VIAL 1 GM in SODIUM CHLORIDE 0.9% 100 ML IV ×2 (05:40→13:43)
[2024-02-15] MEDS: NIFEdipine 30 MG TAB ER PO (08:54)
[2024-02-15] MEDS: PANTOPRAZOLE DR 40 MG TABLET PO (08:55)
--- NOTE | 2024-02-15 10:09 | PM.OBPNLAB ---
Date/Time Date Patient Seen: 02/15/24 Time Patient Seen: 10:09 Pain Control Pain control: epidural Pelvic Exam Dilation (cm): 3 Effacement (%): 80 station: -1 Amniotic membrane status: Leaking Contractions Contractions on admission: none Monitor mode: External Pitocin rate (mU/min): 17 Contraction frequency (min): 3 Contraction duration (min): 1 Contraction pattern: Irregular Contraction intensity: Moderate Status status: Category l Heart Rate Baseline: 140 Monitor Accelerations: Present Monitor Decelerations: Absent Monitor Variability: Moderate Assessment and Plan Assessment: induction ongoing Comments: Continue Pitocin Reassess cervix at 1300 Discussed possible C section if no change in cervix
--- NOTE | 2024-02-15 13:28 | PM.OBPNLAB ---
Date/Time Date Patient Seen: 02/15/24 Time Patient Seen: 13:28 Pain Control Pain control: epidural Pelvic Exam Dilation (cm): 4 Effacement (%): 80 station: -1 Amniotic membrane status: Leaking Contractions Monitor mode: External Pitocin rate (mU/min): 20 Contraction frequency (min): 3 Contraction pattern: Irregular Contraction intensity: Moderate Status status: Category l Assessment and Plan Assessment: induction ongoing Plan: continuous present management Comments: 43yo at 39+0wks admitted for IOL due to FGR and gHTN. Progressing in latent labor with cervical change from 2 to 4cm today. IUPC placed. -continue to titrate pitocin for adequate MVUs
[2024-02-15] MEDS: FENT 2MCG/ML BUPIV 0.125% EPI 200 MCG/100 ML PLAST..BAG 10 MCG EPIDURAL (15:24)
[2024-02-15] MEDS: ONDANSETRON 4 MG/2 ML INJ IV (15:24)
[2024-02-15] MEDS: FENT 2MCG/ML BUPIV 0.125% EPI 200 MCG/100 ML PLAST..BAG 12 MCG EPIDURAL (15:25)
--- NOTE | 2024-02-15 19:13 | PM.OBPNLAB ---
Date/Time Date Patient Seen: 02/15/24 Time Patient Seen: 18:23 Pain Control Pain control: epidural Pelvic Exam Dilation (cm): 9 Effacement (%): 90 station: +1 Amniotic membrane status: Leaking Contractions Contractions on admission: none Monitor mode: External Pitocin rate (mU/min): 20 Contraction frequency (min): 3 Contraction duration (min): 1 Contraction pattern: Irregular Contraction intensity: Moderate Intrauterine tone measurement: 200 Status status: Category l Heart Rate Baseline: 140 Monitor Accelerations: Present Monitor Decelerations: Variable Monitor Variability: Moderate Assessment and Plan Assessment: active labor Comments: Position changes
--- NOTE | 2024-02-15 19:14 | PM.OBPNLAB ---
Date/Time Date Patient Seen: 02/15/24 Time Patient Seen: 19:14 Pain Control Pain control: epidural Pelvic Exam Dilation (cm): 10 Effacement (%): 100 station: +1 Amniotic membrane status: Leaking Contractions Contractions on admission: none Monitor mode: Internal Pitocin rate (mU/min): 20 Contraction frequency (min): 3 Contraction duration (min): 1 Contraction pattern: Regular Contraction intensity: Strong/Firm Intrauterine tone measurement: 205 Status status: Category l Heart Rate Baseline: 150 Monitor Accelerations: Present Monitor Decelerations: Variable (deep) Monitor Variability: Moderate Assessment and Plan Assessment: active labor Comments: Pushing Position changes Will reassess in 30 min for any descent of the head
--- NOTE | 2024-02-15 20:44 | PM.OBPNLAB ---
Date/Time Date Patient Seen: 02/15/24 Time Patient Seen: 20:44 Pain Control Pain control: epidural Pelvic Exam Dilation (cm): 10 Effacement (%): 100 station: +1 (caput) Amniotic membrane status: Leaking Contractions Contractions on admission: none Monitor mode: Internal Pitocin rate (mU/min): 20 Contraction frequency (min): 4 Contraction duration (min): 1 Contraction pattern: Regular Contraction intensity: Strong/Firm Intrauterine tone measurement: 220 Status status: Category l Heart Rate Baseline: 160 Monitor Accelerations: Present Monitor Decelerations: Variable (deep down to 90's) Monitor Variability: Moderate Assessment and Plan Assessment: active labor Plan: Comments: Assessment: No descent of the head with 90 min of pushing with adequate maternal effort and contrations. Narrow maternal pelvis Baseline FHR has risen 30 BPM Deep variable decels Plan: Primary C section The risks, benefits, and alternatives to the procedure were explained to the patient. The risks including bleeding, infection, injury to the bowel, bladder, or ureters. She understands these risks and agrees to proceed. A full par Q was held and consent form was signed.
--- NOTE | 2024-02-15 20:57 | PM.PREOP ---
Pre-operative Note Interval Note History & Physical reviewed/Exam performed by Physician: Yes Changes to H&P: No H&P completed within 30 days and has changed as indicated here:: 02/12/25
[2024-02-15] MEDS: CITRIC ACID/SODIUM CITRATE 15 ML SOLUTION 30 ML PO (21:03)
[2024-02-15] MEDS: CEFAZOLIN 2 GM/100 ML PREMIX 100 ML IV (21:16)
[2024-02-15] MEDS: AZITHROMYCIN 500 MG in DEXTROSE 5% IN WATER 250 ML 250 MG IV (21:21)
--- NOTE | 2024-02-15 21:33 | SUR.OPER ---
Supine on Padded OR bed, head on pillow, safety belt at thigh, arms secured on padded arm boards at <90 degrees abduction. Bump under right buttock. Legs uncrossed with pillow under knees, gel pad to heels, tape over blanket to lower legs.
[2024-02-15] MEDS: ACETAMINOPHEN IV 1,000 MG/100 ML VIAL 400 MG IV (21:44)
[2024-02-15 21:51] LABS: Base Excess Cord Arterial Bld -5.7 (-9.0-1.8); CO2 Cord Arterial Blood 65.8 (40-71); HCO3 Cord Arterial Blood 23.7 (17-27); Oxygen Sat Cord Arterial Blood 10.7 (5-59); pH Cord Arterial Blood 7.16 (7.14-7.38)
[2024-02-15 21:56] LABS: Base Excess Cord Venous Blood -5.8 (-7.7-1.9); Cord Venous Blood PCO2 40.2 (27-56); Cord Venous Blood PO2 26.8 (17-41); Cord Venous Blood pH 7.308 (7.25-7.45); HCO3 Cord Venous Blood 20.1; O2 Saturation Cord Venous Bld 44.1 (14-75)
[2024-02-15 22:23] VITALS: BP 143/96; PULSE 84; RESP 16; TEMP 36.7; O2SAT 99
[2024-02-15 22:28] VITALS: BP 151/98; PULSE 86; RESP 16; O2SAT 99
--- NOTE | 2024-02-15 22:28 | P.OP_ITS ---
Operative Date/Time/Diagnoses Date of procedure: 02/15/24 Time of procedure: 22:28 Pre-op diagnosis: Thirty-nine weeks' gestation Advanced maternal age Stage II arrest of labor Narrow pelvic arch Premature, prolonged rupture of membranes Increasing baseline heart rate Deep variable decelerations Category 2 tracing Post-op diagnosis: same Procedure & Clinicians Procedure: Primary low-transverse section Same procedure as scheduled: Yes Surgeon: Tena Mercedes Yes if Unassisted: No Hospital Orderly: [facility] Reason for Hospital Orderly: The preschool teacher assistant was necessary to retract upon entry into the abdomen and uterus. He assisted with delivery of the with fundal pressure. He assisted with closure with retraction, clipping of suture, and closure of the contralateral fascia. Anesthesia Type: Epidural (With Duramorph) Operative Notes Findings: Live male infant in the direct occiput posterior presentation Nuchal cord x1 Moderate meconium-stained amniotic fluid Normal tubes and ovaries Edematous lower uterine segment and bladder Narrow pelvic inlet Closure Type: primary Specimen(s): cord blood, cord pH, placenta and other (Cultures of maternal/ sides of the placenta) Intraoperative meds administered: Acetaminophen, Duramorph, Ketorolac and P itocin Applied: Catheter (To continuous drainage) Estimated Blood Loss (mL): 150 Blood products transfused: none Procedure in detail: After informed consent was obtained, the patient was taken to the operating room where she was placed in the dorsal supine position with a leftward tilt. She was then prepped and draped in the usual sterile fashion. The head was elevated from below. A time-out was performed. After epidural analgesia was found to be adequate, a Pfannenstiel skin incision was made 2 fingerbreadths above the pubic symphysis, and carried through to the underlying layer of fascia. The fascia was nicked in the midline and the incision extended bilaterally with the Murphy scissors. The superior aspect of the fascial incision was grasped with the Delonte clamps, elevated, and the underlying rectus muscles dissected off sharply and bluntly. Attention was then turned to the inferior aspect of this incision which in a similar fashion was grasped with the Delonte clamps, elevated, and the underlying rectus muscles dissected off sharply and bluntly. The rectus muscles were in the midline. The peritoneum was identified, grasped between 2 hemostats, and entered sharply with the Metzenbaum scissors. This incision was extended bluntly. An attempt was made to place the bladder blade but the pelvic inlet was too narrow. The vesicouterine peritoneum was grasped with a pickup, entered sharply with the Metzenbaum scissors. And this incision was extended b ilaterally and the bladder flap created digitally. The lower uterine segment was incised in a transverse fashion. Upon entering the amniotic sac there was moderate meconium-stained amniotic fluid. The 's head was delivered with vacuum assistance. The nose and mouth were suctioned with bulb suction. The remainder of the body delivered without difficulty. The cord was milked. The cord was double clamped and cut and the infant was handed off to waiting RN and RT due to decreased tone. A piece of cord for cord pH was obtained. Cord bloods were obtained. Pitocin was given in the IV fluids. The placenta was delivered by expression. The uterus was cleared of all clots and debris. The uterine incision was repaired with 1. Chromic in a running interlocking fashion. A second layer of the same suture was used for an imbricating layer. There was some bleeding noted in the midline. A [id number] suture was placed for hemostasis. The gutters were cleared of all clots and debris. The bladder flap was reapproximated using 0 Vicryl in a running fashion. The tubes and ovaries were examined and were found to be normal. The parietal peritoneum was closed using 2-0 Vicryl in a running fashion. The fascia was reapproximated using 0 Vicryl in a running fashion. The subcutaneous layer was copiously irrigated with warm normal saline. Five simple interrupted sutures with 3-0 Vicryl were placed to reapproximate the subcutaneous layer. The skin was closed with 4-0 Monocryl in a subcuticular fashion. Steri-Strips and an Aquacel dressing were placed. The uterus was expressed of a small amount of old blood. The uterus was marked at U -1. Sponge, lap, and instrument counts were correct x2. The patient tolerated the procedure well, and was taken to PACU in stable condition. Complications: none [place] Baby 1: Delivery Date: 02/15/24 Delivery Time: 21:36 Infant Gender: Male Presentation: vertex Position: Occiput Posterior Placental Delivery Description: Expressed Cord Vessel Description: 3 Vessels, Nuchal Cord and Reduced score (1 min): 6 score (5 min): 8 score (10 min): 9 weight: 5 lb 6 oz Post-operative Condition: stable Disposition: PACU Aftercare: routine postop
[2024-02-15 22:35] VITALS: BP 134/88; PULSE 87; RESP 19; TEMP 36.7; O2SAT 98
[2024-02-16 06:38] LABS: Add Manual Diff / Slide Review NO; Basophils Absolute Auto 100 /uL (0-100); Basophils Percent Auto 0.3 % (0-2); Eosinophils Absolute Auto 0 /uL (0-450); Hematocrit 35.5 % (36-46); Hemoglobin 11.4 g/dL (12.0-16.0); Lymphocytes Absolute Auto 1100 /uL (1100-4500); Lymphocytes Percent Auto 5.4 % (25-40); Mean Corpuscular HGB Conc 32.2 % (30-36); Mean Corpuscular Hemoglobin 27.4 PG (26-34); Mean Corpuscular Volume 85.2 fL (80-100); Monocytes Absolute Auto 700 /uL (0-900); Monocytes Percent Auto 3.5 % (3-14); Neutrophils Absolute Auto 18200 /uL (1500-7000); Neutrophils Percent Auto 90.8 % (50-75); Platelet Count 323 X10^3/uL (150-400); Red Blood Cell Count 4.16 X10^6/uL (4.0-5.2); Red Cell Distribution Width 15.8 % (11.6-14.8); White Blood Cell Count 20.1 X10^3/uL (4.5-11.0)
[2024-02-16] MEDS: ACETAMINOPHEN 325 MG TABLET 650 MG PO ×3 (08:35→20:33)
[2024-02-16] MEDS: KETOROLAC 30 MG/ML VIAL IV ×3 (08:35→20:34)
[2024-02-16] MEDS: DOCUSATE 100 MG CAPSULE PO (08:36)
[2024-02-16] MEDS: LANOLIN OINT 7 GM 1 APPLIC TOP (08:36)
[2024-02-16] MEDS: PRENATAL VIT,CALC/IRON/FOLIC 1 TABLET 1 TAB PO (08:36)
--- NOTE | 2024-02-16 19:59 | PM.OBPN.1 ---
Subjective - OB Subjective Patient comments: no complaints and pain well controlled [place] baby status: other (BS issues) [place] feeding status: breast and bottle feeding Date Patient Seen: 02/16/24 Time Patient Seen: 07:40 Interval history: POD #1 s/p C section for stage 2 arrest of labor Bleeding tapering. Voided without the catheter. Pain well controlled. Ambulating without assistance. Tolerating a diet. No N/V. Exam Vital Signs (past 8 hours): Oxygen Delivery Method Room Air Narrative Exam Narrative: Gen: Walking in room, no acute distress Lungs: Clear to auscultation bilaterally Cardiovascular: Regular rate and rhythm Fundus: Firm at U -1 Incision: Clean dry and intact with Aquacel dressing Extremities: 1+ edema, negative [place] Objective Labs 02/16/24 06:27 02/13/24 10:45 Labs: Laboratory Results - last 24 hr 02/15/24 02/15/24 02/16/24 21:46 21:53 06:27 WBC 20.1 H RBC 4.16 Hgb 11.4 L Hct 35.5 L MCV 85.2 MCH 27.4 MCHC 32.2 RDW 15.8 H Plt Count 323 Neut % (Auto) 90.8 H Lymph % (Auto) 5.4 L [place] % (Auto) 3.5 Eos % (Auto) 0.0 L Baso % (Auto) 0.3 Neut # (Auto) 93208 H Lymph # (Auto) 1100 [place] # (Auto) 700 Eos # (Auto) 0 Baso # (Auto) 100 Cord ABG pH 7.16 Cord ABG pCO2 65.8 Cord ABG HCO3 23.7 Cord ABG Base Excess -5.7 Cord ABG O2 Sat 10.7 Cord VBG pH 7.308 Cord VBG pCO2 40.2 Cord VBG pO2 26.8 Cord VBG HCO3 20.1 Cord VBG Base Excess -5.8 Cord VBG O2 Sat 44.1 Assessment & Plan Plan day: 1 plan OB: routine postop care Comments: Anticipate discharge 02/17/24 Time-Based Coding :: [TOTAL MINUTES] spent with patient and on the chart (including review of chart, obtaining history, exam, reviewing outside data, placing orders, documenting exam and treatment plan, and counseling patient) on [DATE].
[2024-02-16] MEDS: NIFEdipine 30 MG TAB ER PO (20:33)
[2024-02-16] MEDS: MAGNESIUM HYDROXIDE 30 ML UDC PO (20:34)
--- NOTE | 2024-04-11 07:46 | PM.DS.IH.1 ---
History of Present Illness History of Present Illness Date Patient Seen: 02/16/24 Time Patient Seen: 22:00 Chief complaint: IOL Narrative: POD #1 s/p C section for stage 2 arrest of labor Bleeding tapering. Voided without the catheter. Pain well controlled. Ambulating without assistance. Tolerating a diet. No N/V. Her pain is well controlled. Patient's baby is being transferred and patient would like to be discharged to be with the baby Discharge Providers Provider Date of admission: 02/13/24 10:23 Discharge Date: 02/16/24 Primary care physician: Aditi KILLIAN Provider Consults: 02/13/24 11:35 Consult to Anesthesiology Urgent Comment: Consulting Provider: Anesthesiologist Reason for consultation: Epidural 02/15/24 23:14 Consult to Clinical Resource Manager Routine Comment: Discharge provider: Tena Sanford MD Summary Hospital Course Discharge Diagnosis: 38-5/7 weeks gestation Cervical ripening with Cervidil Induction of labor with Pitocin Epidural analgesia Stage II arrest of labor Hospital Course: Patient is a 43-year-old 3 para 1 who presented to the office on February 13, 2024 with elevated blood pressure and growth restriction. She was sent to the center for cervical ripening and induction of labor. She received 1 dose of Cervidil. At midnight she had a spontaneous rupture of membranes. She received an epidural for pain management. On the morning of February 14, 2024 a Hernandez bulb was attempted in the cervix and the bulb burst. She received Pitocin. After a long stage I of labor, she progressed to complete dilation and on February 14, 2023 she began pushing. After 90 minutes of pushing, there was no descent of the head past 0 station. A decision was made to proceed with a primary low transverse section. She underwent the section without complication. Her baby was transferred due to blood sugar issues. Mom wanted to be discharged to be with the baby. Exam Vital Signs (past 8 hours): Oxygen Delivery Method Room Air Narrative Exam Narrative: Generally: Patient is sitting up in bed, no acute distress Lungs: Clear to auscultation bilaterally Cardiovascular: Regular rate and rhythm Fundus: Firm at U-1 Incision: Clean dry and intact Extremities: Trace edema, negative Homans Objective Labs 02/16/24 06:27 02/13/24 10:45 [facility] Medical History (Updated 03/27/24 @ 11:05 by Amena Larry MD) Advanced maternal age (AMA), 40 years or greater conceived through in vitro fertilization Yeast infection Surgical History (Updated 12/07/23 @ 14:37 by Katrin English, RN) [place] teeth extracted History of ankle surgery History of tonsillectomy and adenoidectomy Family History (Updated 12/07/23 @ 14:43 by Katrin English, RN) Mother Hypothyroidism Hypertension Uncle Diabetes mellitus Sister Hypertension Hypothyroidism Gestational diabetes Father Skin cancer Grandfather Melanoma Social History marital status: number of children: 0 household members: spouse lives independently: Yes caregiver/support person: Yes housing: house pets and animals: Yes (dog) education level: college (bachelor's degree) occupational status: employed ([employer]) current occupational exposures/hazards: No special cheyanne needs: No travel history: recent (Move from [place]) seatbelt use: always water heater temp set < 120 deg: Yes working smoke detector in home: Yes fire extinguisher in home: No carbon monox detector in home: Yes firearms in home: Yes firearms unloaded and locked: Yes do you feel safe at home: Yes Smoking Status: Former smoker Tobacco: How many years used: 6 (off and on) second hand exposure: No alcohol intake: former (typically 1-2/week when not , occasionally more) substance use type: does not use during the past year weight has: remained stable (prior to ) well-balanced diet: daily or most days daily servings fruits/ve-4 caffeine: Yes (decaf coffee) Type(s) of exercise: walking frequency: daily Discharge Assessment & Plan Assessment and Plan Assessment: Postop day #1 status post primary low transverse section, doing very well Plan of Treatment: Patient will be discharged to be able to be with her baby Follow-up in [address] G[place]am Discharge Plan Discharge Plan Patient Disposition: Home Provider Discharge Comment: Call with fever, chills, redness or drainage around the incision, or bleeding vaginally more than a pad in an hour Ibuprofen 600 mg every 6 hours as needed Tylenol 650 mg every 6 hours as needed Push oral fluids Discharge orders & Medications Prescriptions: Discontinued famotidine 20 mg tablet 20 mg PO BEDTIME Qty: 90 3RF fluconazole 150 mg tablet 150 mg PO Q3D Qty: 2 3RF Rx Instructions: may repeat second dose 72 hrs after first dose if symptoms persist No Action nifedipine 30 mg tablet extended release 24hr 30 mg PO BID Qty: 60 3RF Nortrel 1/35 (28) 1-35 mg-mcg tablet 1 tab PO DAILY Qty: 168 1RF PNV cmb#[id number]-ferrous fumarate-FA [ Multivitamins] 28 mg iron- 800 mcg tablet 1 tab PO DAILY Qty: 30 3RF Follow up/Referrals: Amena Larry MD [Physician] - (Please call on monday02/19/2024 to make 1 week incision appointment and 6 week follow up appointment w/ Dr. Larry.) Diet/Activity/Treatments Diet: Regular Activity: No heavy lifting Skin/Wound/Dressing Care Report to your healthcare provider any signs of infection, such as:: chills, fever, increased pain, unusual drainage and unusual redness Dressing: Do not remove Visit Report/Discharge Packet Instructions: DI for Hemorrhage, DI for , DI for Depression, DI for Prescription Opioid Use Stand Alone Forms: Discharge: Care, Patient Portal/API, Stroke Signs & Symptoms Discharge Data Primary Care Provider: ProviderAditi PROFSHAGUFTA Charge Codes Discharge inpatient/observation: 45046
== END 2024-02-17 01:40 | disposition home or self-care (01) | DRG 787 ==
PROVIDERS: Obstetrics & Gynecology; Admitting Provider Obstetrics & Gynecology; Referring Provider Obstetrics & Gynecology; Visit Provider Obstetrics & Gynecology
PROC: 10D00Z1 Extraction of Products of Conception, Low, Open Approach (ICD-10-PCS; CPT 59514; principal; 2024-02-15 21:30)
DX: O42.12 Full-term premature rupture of membranes, onset of labor more than 24 hours following rupture (principal); O33.0 Maternal care for disproportion due to deformity of maternal pelvic bones; O76 Abnormality in fetal heart rate and rhythm complicating labor and delivery; Z3A.39 39 weeks gestation of pregnancy; Z37.0 Single live birth; O13.4 Gestational [pregnancy-induced] hypertension without significant proteinuria, complicating childbirth; O36.5930 Maternal care for other known or suspected poor fetal growth, third trimester, not applicable or unspecified; O43.193 Other malformation of placenta, third trimester; O61.0 Failed medical induction of labor
CPT/HCPCS: 36415; 59050; 59200; 59514; 59515; 80053; 82570; 82803; 84156; 84550; 85025; 87070; 87075; 87077; 87205; G0379; J0131; J0690; J1100; J1885; J2274; J2405; J2590

== ENCOUNTER 2024-02-21 14:24 | Inpatient (IN) | payer OTHER, SELFPAY ==
[2024-02-21 15:06] VITALS: BP 176/103; PULSE 69
[2024-02-21] MEDS: HYDRALAZINE 20 MG/ML VIAL 5 MG IV ×2 (15:06→21:49)
[2024-02-21] MEDS: MAGNESIUM SULFATE 4 GM/100 ML PIGGYBACK IV (15:15)
[2024-02-21 15:21] LABS: Add Manual Diff / Slide Review NO; Basophils Absolute Auto 100 /uL (0-100); Eosinophils Absolute Auto 300 /uL (0-450); Eosinophils Percent Auto 2.7 % (2-4); Hematocrit 34.9 % (36-46); Hemoglobin 11.4 g/dL (12.0-16.0); Lymphocytes Absolute Auto 2600 /uL (1100-4500); Lymphocytes Percent Auto 25.2 % (25-40); Mean Corpuscular HGB Conc 32.5 % (30-36); Mean Corpuscular Hemoglobin 27.5 PG (26-34); Mean Corpuscular Volume 84.6 fL (80-100); Monocytes Absolute Auto 900 /uL (0-900); Monocytes Percent Auto 8.8 % (3-14); Neutrophils Absolute Auto 6500 /uL (1500-7000); Neutrophils Percent Auto 62.3 % (50-75); Platelet Count 563 X10^3/uL (150-400); Red Blood Cell Count 4.13 X10^6/uL (4.0-5.2); Red Cell Distribution Width 15.3 % (11.6-14.8); White Blood Cell Count 10.5 X10^3/uL (4.5-11.0)
[2024-02-21 15:33] LABS: Alanine Aminotransferase 47 IU/L (<35); Albumin 3.8 g/dL (3.5-5.0); Albumin Globulin Ratio 1.1 (1.0-2.8); Alkaline Phosphatase 129 U/L (38-126); Aspartate Aminotransferase 41 IU/L (14-36); BUN Creatinine Ratio 13.3 (6-22); Bilirubin Total 0.6 mg/dL (0.2-1.3); Blood Urea Nitrogen 12 mg/dL (7-17); Calcium 8.9 mg/dL (8.4-10.2); Carbon Dioxide 24 mmol/L (22-32); Chloride 103 mmol/L (98-107); Estimated Glomerular Filt Rate > 60 mL/min (>60); Globulin 3.4 g/dL (1.7-4.1); Glucose 84 mg/dL (70-100); HEMOLYSIS < 15 (0-50); Potassium 3.7 mmol/L (3.4-5.1); Sodium 134 mmol/L (137-145); Total Protein 7.2 g/dL (6.3-8.2); Uric Acid 5.2 mg/dL (2.5-6.2)
[2024-02-21] MEDS: NIFEdipine 30 MG TAB ER PO ×2 (15:39→21:09)
[2024-02-21] MEDS: MAGNESIUM SULFATE 20 GM/500 ML IV.SOLN IV (15:44)
[2024-02-21 16:48] LABS: Creatinine Urine Random 18.25 mg/dL; Protein (Total) Urine Random 16 mg/dL (0-12); Protein Creatinine Ratio Urine 0.87 GRAM/24H
--- NOTE | 2024-02-21 16:57 | PM.GYNHP.1 ---
History of Present Illness History of Present Illness Reason for admission: other ( preE with severe features ) Narrative: Zoë Childress is a 43 year old female s/p 1LTCS 02/15/24 for second stage arrest, IOL at term in setting of progressive IUGR, new maternal GHTN without preE. Patient presented to office today for routine incision check, additional concerns for possible vaginal yeast infection. Initial BP in office 160s/90s, 170s/100s on provider re-check. Patient was admitted to unit for 24h IV magnesium and blood pressure control, preE with severe features. Reports mild bi-temporal WONG without visual changes, mild lower back discomfort c/w msk, bilateral BLE. Minimal lochia. /pumping/supplementing. [facility]LY [facility] Medical History (Updated 02/21/24 @ 23:25 by Amena Larry MD) Yeast infection Surgical History (Updated 12/07/23 @ 14:37 by Katrin English RN) [place] teeth extracted History of ankle surgery History of tonsillectomy and adenoidectomy Family History (Updated 12/07/23 @ 14:43 by Katrin English, ASHER) Mother Hypothyroidism Hypertension Uncle Diabetes mellitus Sister Hypertension Hypothyroidism Gestational diabetes Father Skin cancer Grandfather Melanoma Social History marital status: number of children: 0 household members: spouse lives independently: Yes caregiver/support person: Yes housing: house pets and animals: Yes (dog) education level: college (bachelor's degree) occupational status: employed (Active duty [employer]) current occupational exposures/hazards: No special cheyanne needs: No travel history: recent (Move from [place]) seatbelt use: always water heater temp set < 120 deg: Yes working smoke detector in home: Yes fire extinguisher in home: No carbon monox detector in home: Yes firearms in home: Yes firearms unloaded and locked: Yes do you feel safe at home: Yes Smoking Status: Former smoker Tobacco: How many years used: 6 (off and on) second hand exposure: No alcohol intake: former (typically 1-2/week when not , occasionally more) substance use type: does not use during the past year weight has: remained stable (prior to ) well-balanced diet: daily or most days daily servings fruits/ve-4 caffeine: Yes (decaf coffee) Type(s) of exercise: walking frequency: daily Meds Home Medications and Allergies Home Medications Medication Instructions Recorded Confirmed Type vit no.95-ferrous 1 tab PO DAILY 12/07/23 02/21/24 History fumarate 28 mg-folic acid 800 mcg tablet ( Multivitamins) ferrous gluconate 324 mg (37.5 mg 324 mg PO DAILY #90 tabs 12/11/23 02/21/24 Rx iron) tablet breast pump #1 ea 01/19/24 02/21/24 Rx oxycodone 5 mg tablet 5 mg PO Q6H PRN pain #14 tabs 02/16/24 02/21/24 Rx ibuprofen 800 mg tablet 800 mg PO Q8H #30 tabs 02/17/24 02/21/24 Rx oxycodone 5 mg capsule 5 mg PO Q6H PRN pain #14 caps 02/17/24 02/21/24 Rx sennosides 8.6 mg capsule (senna) 8.6 mg PO DAILY PRN constipation 02/17/24 02/21/24 Rx #14 caps Allergies Allergy/AdvReac Type Severity Reaction Status Date / Time No Known Drug Allergies Allergy Unverified 02/21/24 13:43 Review of Systems Review of Systems ROS: Yes All systems reviewed with the patient and are negative except as otherwise documented Exam Vital Signs (past 8 hours): - 02/21/24 15:06 Pulse Rate 69 Blood Pressure 176/103 H Serial BP monitoring, see OBIX documentation IV hydralazine 5mg IV x1 on admission, PO nifedipine 30mg ER with appropriate response Const General: cooperative and comfortable Nutritional Appearance: average body habitus Orientation: alert, awake and oriented x3 Limitations: mental status not altered [facility] Head: normal to inspection Mouth: moist mucous membranes Resp Effort & Inspection: normal respiratory effort, able to speak in complete sentences and other Auscultation: other (mild bilateral crackles without wheeze bilateral lower [place] ) Cardio Rate: regular rate Pulses: normal peripheral pulses GI Inspection: normal to inspection Other: pfannensteil incision c/d/i, Aquacel removed, steris intact noted 5x4cm superficial hematoma inferior to incision (midline, L lateral), non-tender without induration Other: deferred pt c/o vaginal pruritus without change in discharge, minimal lochia Skin General: no rashes or lesions noted Neuro General: patient alert, patient awake and patient oriented x3 Motor: other (+2 DTR without clonus ) Extrem Other: +2 edema BLE with extension to medial thigh Psych Mental Status: mental status grossly normal Affect: other (tearful on discussion of need for admission ) Judgment: judgment good Objective Labs 02/21/24 15:00 02/21/24 15:00 Labs: Laboratory Results - last 24 hr 02/21/24 02/21/24 15:00 16:00 WBC 10.5 RBC 4.13 Hgb 11.4 L Hct 34.9 L MCV 84.6 MCH 27.5 MCHC 32.5 RDW 15.3 H Plt Count 563 H Neut % (Auto) 62.3 Lymph % (Auto) 25.2 Dickens % (Auto) 8.8 Eos % (Auto) 2.7 Baso % (Auto) 1.0 Neut # (Auto) 6500 Lymph # (Auto) 2600 Dickens # (Auto) 900 Eos # (Auto) 300 Baso # (Auto) 100 Sodium 134 L Potassium 3.7 Chloride 103 Carbon Dioxide 24 BUN 12 Creatinine 0.90 Estimated GFR > 60 BUN/Creatinine Ratio 13.3 Glucose 84 Uric Acid 5.2 Calcium 8.9 Total Bilirubin 0.6 AST 41 H ALT 47 H Alkaline Phosphatase 129 H Total Protein 7.2 Albumin 3.8 Globulin 3.4 Albumin/Globulin Ratio 1.1 U Random Total Protein 16 H Urine Creatinine 18.25 Protein/Creatinin Ratio 0.87 Assessment & Plan Assessment and plan (1) Pre-eclampsia, severe, condition: Status: Acute Plan 43yo s/p 1LTCS 02/15/24, readmission for serial BP monitoring/treatment, 24h IV magnesium in setting of preE with severe features preE with severe features Persistent severe range BP on admission, appropriate response to IV hydralazine 5mg, PO nifedipine 30mg XR PIH labs with mild increase in Cr (0.9), mild transaminitis, Pr/Cr 0.87 IV magnesium gtt initiated on admission, 4g loading dose, 2g/h thereafter x24h serum mag checks q6h notified by RN at 20:51 of recurrent persistent severe range BP (170s/110), additional PO nifedipine 30mg XR without adequate response, additional IV hydralazine 5mg x1 with subsequent return to mild range start daily PO nifedipine 60mg XR in AM (0900) repeat CBC/CMP ordered for routine AM draw routine neuro checks per protocol Pumping for breast milk aquacel removed on admission, plan for removal of steris in AM/prior to discharge high risk PPD, plan for short interval BP/mood check in office Vaginal pruritus single dose PO diflucan 150mg F: IV mag, hold maintenance fluids secondary to clinical s/sx of volume overload E: no repletions indicated N: general diet if no evidence of sedation strict I/Os Time-Based Coding :: [TOTAL MINUTES] spent with patient and on the chart (including review of chart, obtaining history, exam, reviewing outside data, placing orders, documenting exam and treatment plan, and counseling patient) on [DATE].
[2024-02-21] MEDS: ACETAMINOPHEN 325 MG TABLET 650 MG PO (17:31)
[2024-02-21 21:20] VITALS: TEMP 37.1
[2024-02-21] MEDS: OXYCODONE IR 5 MG TABLET PO (21:20)
[2024-02-21 22:28] LABS: Magnesium 5.5 mg/dL (1.6-2.3)
[2024-02-22] MEDS: MAGNESIUM SULFATE 20 GM/500 ML IV.SOLN IV ×2 (00:57→11:11)
[2024-02-22] MEDS: ACETAMINOPHEN 325 MG TABLET 650 MG PO ×3 (03:20→21:28)
[2024-02-22 03:59] LABS: Add Manual Diff / Slide Review NO; Basophils Absolute Auto 0 /uL (0-100); Basophils Percent Auto 0.3 % (0-2); Eosinophils Absolute Auto 200 /uL (0-450); Eosinophils Percent Auto 1.9 % (2-4); Hematocrit 36.8 % (36-46); Hemoglobin 12.2 g/dL (12.0-16.0); Lymphocytes Absolute Auto 1800 /uL (1100-4500); Lymphocytes Percent Auto 17.7 % (25-40); Mean Corpuscular HGB Conc 33.2 % (30-36); Mean Corpuscular Hemoglobin 27.7 PG (26-34); Mean Corpuscular Volume 83.3 fL (80-100); Monocytes Absolute Auto 700 /uL (0-900); Monocytes Percent Auto 7.1 % (3-14); Neutrophils Absolute Auto 7300 /uL (1500-7000); Platelet Count 565 X10^3/uL (150-400); Red Blood Cell Count 4.41 X10^6/uL (4.0-5.2); Red Cell Distribution Width 15.5 % (11.6-14.8)
[2024-02-22 04:09] LABS: Magnesium 6.7 mg/dL (1.6-2.3)
[2024-02-22] MEDS: ONDANSETRON 4 MG ODT SL (08:41)
[2024-02-22] MEDS: FLUCONAZOLE 100 MG TABLET 150 MG PO (09:36)
[2024-02-22 10:47] LABS: Magnesium 7.4 mg/dL (1.6-2.3)
[2024-02-22 16:19] LABS: Alanine Aminotransferase 41 IU/L (<35); Albumin 3.5 g/dL (3.5-5.0); Alkaline Phosphatase 135 U/L (38-126); Aspartate Aminotransferase 35 IU/L (14-36); BUN Creatinine Ratio 12.7 (6-22); Bilirubin Total 0.5 mg/dL (0.2-1.3); Blood Urea Nitrogen 10 mg/dL (7-17); Carbon Dioxide 24 mmol/L (22-32); Chloride 97 mmol/L (98-107); Estimated Glomerular Filt Rate > 60 mL/min (>60); Globulin 3.5 g/dL (1.7-4.1); Glucose 134 mg/dL (70-100); HEMOLYSIS < 15 (0-50); Potassium 3.5 mmol/L (3.4-5.1); Sodium 125 mmol/L (137-145)
[2024-02-22 16:22] LABS: Calcium 5.9 mg/dL (8.4-10.2)
--- NOTE | 2024-02-22 16:22 | P.PN_ITS ---
Subjective Subjective Date Patient Seen: 02/22/24 Time Patient Seen: 16:22 Interval history: Patient overnight has not had any signs or symptoms severe blood pressure elevation. Her severe range blood pressures and it after midnight and have been normal on every determination so far today (02/22/2024). Nifedipine 60 mg extended release ordered for this a.m. but held by the nursing staff due to low normal blood pressures. Magnesium sulfate has been discontinued and blood pressures remain normal at this point. Follow-up CMP shows persistent mild transaminase elevations noted on admission. Since magnesium sulfate has been discontinued, both systolic and diastolic pressures have begun to rise although both remain in the normal range at this. Exam Const General: cooperative and comfortable Nutritional Appearance: average body habitus Orientation: alert and oriented x3 HENMT Head: normal to inspection, atraumatic and abrasion Ears: hearing grossly normal bilaterally Face and sinus: face symmetric Eyes General: appearance normal, both eyes and all related structures Conjunctivae: conjunctivae normal Sclera: sclerae normal EOM: EOM intact bilaterally Neck Neck: normal visual inspection Resp Effort & Inspection: normal respiratory effort and able to speak in complete sentences Auscultation: clear to auscultation bilaterally Cardio Rate: regular rate Rhythm: regular rhythm Heart Sounds: S1 normal, S2 normal and no murmurs GI Inspection: normal to inspection and incision (Clean and dry, healing nicely) Palpation: soft, no hepatosplenomegaly and tender (Mild, diffuse postsurgical tenderness) External Female Exam: other (No significant bleeding noted) Neuro General: patient alert, patient awake and patient oriented x3 Cognition: normal cognition Speech: speech normal DTR's: Rt Patellar: 3+ and Lt Patellar: 3+ Extrem General: no calf tenderness Right lower extremity: edema (Minimal) Left lower extremity: edema (Minimal) Psych Appearance: grossly normal Mental Status: mental status grossly normal Speech and Movement: speech and movement normal Mood: congruent mood Affect: normal affect Attitude: cooperative Thought Process: normal Thought Content: normal Judgment: judgment good Objective Labs 02/22/24 03:40 02/21/24 15:00 Labs: Laboratory Results - last 24 hr 02/21/24 02/21/24 02/22/24 16:00 22:02 03:40 WBC 10.0 RBC 4.41 Hgb 12.2 Hct 36.8 MCV 83.3 MCH 27.7 MCHC 33.2 RDW 15.5 H Plt Count 565 H Neut % (Auto) 73.0 Lymph % (Auto) 17.7 L Atkinson % (Auto) 7.1 Eos % (Auto) 1.9 L Baso % (Auto) 0.3 Neut # (Auto) 7300 H Lymph # (Auto) 1800 Atkinson # (Auto) 700 Eos # (Auto) 200 Baso # (Auto) 0 Magnesium 5.5 H* 6.7 H* U Random Total Protein 16 H Urine Creatinine 18.25 Protein/Creatinin Ratio 0.87 02/22/24 10:12 WBC RBC Hgb Hct MCV MCH MCHC RDW Plt Count Neut % (Auto) Lymph % (Auto) Atkinson % (Auto) Eos % (Auto) Baso % (Auto) Neut # (Auto) Lymph # (Auto) Atkinson # (Auto) Eos # (Auto) Baso # (Auto) Magnesium 7.4 H* U Random Total Protein Urine Creatinine Protein/Creatinin Ratio [facility] Medical History (Updated 02/22/24 @ 16:39 by Tuan Faye MD) Yeast infection Surgical History (Updated 12/07/23 @ 14:37 by Katrin English RN) [place] teeth extracted History of ankle surgery History of tonsillectomy and adenoidectomy Family History (Updated 12/07/23 @ 14:43 by Katrin English, ASHER) Mother Hypothyroidism Hypertension Uncle Diabetes mellitus Sister Hypertension Hypothyroidism Gestational diabetes Father Skin cancer Grandfather Melanoma Social History marital status: number of children: 0 household members: spouse lives independently: Yes caregiver/support person: Yes housing: house pets and animals: Yes (dog) education level: college (bachelor's degree) occupational status: employed (Active duty [employer]) current occupational exposures/hazards: No special cheyanne needs: No travel history: recent (Move from [place]) seatbelt use: always water heater temp set < 120 deg: Yes working smoke detector in home: Yes fire extinguisher in home: No carbon monox detector in home: Yes firearms in home: Yes firearms unloaded and locked: Yes do you feel safe at home: Yes Smoking Status: Former smoker Tobacco: How many years used: 6 (off and on) second hand exposure: No alcohol intake: former (typically 1-2/week when not , occasionally more) substance use type: does not use during the past year weight has: remained stable (prior to ) well-balanced diet: daily or most days daily servings fruits/ve-4 caffeine: Yes (decaf coffee) Type(s) of exercise: walking frequency: daily Assessment & Plan Assessment and plan (1) Pre-eclampsia, severe, condition: Status: Acute (2) Elevated liver transaminase level: Status: Acute Plan Will reinstitute nifedipine with 60 mg extended release dose tonight and 30 mg extended release b.i.d. starting in the morning. Repeat CBC and CMP in a.m. Possible discharge tomorrow if transaminase levels are stable and blood pressure is under good control. Time-Based Coding :: 20spent with patient and on the chart (including review of chart, obtaining history, exam, reviewing outside data, placing orders, documenting exam and treatment plan, and counseling patient) on 02/21/2023.
[2024-02-22] MEDS: DOCUSATE 100 MG CAPSULE PO (16:52)
[2024-02-22] MEDS: NIFEdipine 30 MG TAB ER 60 MG PO (16:53)
[2024-02-23] MEDS: ACETAMINOPHEN 325 MG TABLET 650 MG PO (05:23)
[2024-02-23 06:01] LABS: Add Manual Diff / Slide Review NO; Basophils Absolute Auto 100 /uL (0-100); Basophils Percent Auto 0.6 % (0-2); Eosinophils Absolute Auto 200 /uL (0-450); Eosinophils Percent Auto 1.7 % (2-4); Hematocrit 35.5 % (36-46); Hemoglobin 11.7 g/dL (12.0-16.0); Lymphocytes Absolute Auto 1900 /uL (1100-4500); Lymphocytes Percent Auto 18.1 % (25-40); Mean Corpuscular HGB Conc 32.9 % (30-36); Mean Corpuscular Hemoglobin 27.6 PG (26-34); Mean Corpuscular Volume 84.1 fL (80-100); Monocytes Absolute Auto 800 /uL (0-900); Monocytes Percent Auto 7.2 % (3-14); Neutrophils Absolute Auto 7600 /uL (1500-7000); Neutrophils Percent Auto 72.4 % (50-75); Platelet Count 661 X10^3/uL (150-400); Red Blood Cell Count 4.23 X10^6/uL (4.0-5.2); Red Cell Distribution Width 15.3 % (11.6-14.8); White Blood Cell Count 10.5 X10^3/uL (4.5-11.0)
[2024-02-23 06:14] LABS: Alanine Aminotransferase 36 IU/L (<35); Albumin 3.6 g/dL (3.5-5.0); Albumin Globulin Ratio 1.1 (1.0-2.8); Alkaline Phosphatase 112 U/L (38-126); Aspartate Aminotransferase 26 IU/L (14-36); BUN Creatinine Ratio 12.9 (6-22); Bilirubin Total 0.5 mg/dL (0.2-1.3); Blood Urea Nitrogen 9 mg/dL (7-17); Calcium 6.9 mg/dL (8.4-10.2); Carbon Dioxide 24 mmol/L (22-32); Chloride 105 mmol/L (98-107); Estimated Glomerular Filt Rate > 60 mL/min (>60); Globulin 3.3 g/dL (1.7-4.1); Glucose 96 mg/dL (70-100); HEMOLYSIS < 15 (0-50); Potassium 3.9 mmol/L (3.4-5.1); Sodium 133 mmol/L (137-145); Total Protein 6.9 g/dL (6.3-8.2)
[2024-02-23] MEDS: DOCUSATE 100 MG CAPSULE PO (07:23)
--- NOTE | 2024-02-23 09:37 | P.DS_ITS ---
History of Present Illness History of Present Illness Date Patient Seen: 02/23/24 Time Patient Seen: 08:00 Date of Onset of Symptoms: 02/21/24 Chief complaint: preE with severe features Narrative: 43yo s/p primary LTCS of LBMI 125 for second stage arrest, IOL at term in setting of progressive IUGR, new maternal GHTN without preE. Patient presented to office 02/21/24 for routine incision check, additional concerns for possible vaginal yeast infection. Initial BP in office 160s/90s, 170s/100s on provider re-check. Patient was admitted to unit for 24h IV magnesium and blood pressure control, preE with severe features. Mild elevation in LFTs and creatinine on admission (AST/ALT 41/47, Cr 0.90) without clinical s/sx. Patient completed 24h IV magnesium for seizure ppx and had rapid improvement of BP with resumption of oral nifedipine 30mg XR BID. Autodiuresis noted throughout admission with robust UOP. Patient was discharged to home on HD3 with all symptoms resolved and sustained blood pressure control, planned short interval f/u in office 1wk. No postopartum or postoperative issues identified at time of this admission. Discharge Providers Provider Date of admission: 02/21/24 14:24 Discharge Date: 02/23/24 Primary care physician: Aditi KILLIAN Provider Discharge provider: Amena Larry MD Summary Hospital Course Discharge Diagnosis: preE with severe features Hospital Course: 43yo s/p primary LTCS of LBMI 25 for second stage arrest, IOL at term in setting of progressive IUGR, new maternal GHTN without preE. Patient presented to office 02/21/24 for routine incision check, additional concerns for possible vaginal yeast infection. Initial BP in office 160s/90s, 170s/100s on provider re-check. Patient was admitted to unit for 24h IV magnesium and blood pressure control, preE with severe features. Mild elevation in LFTs and creatinine on admission (AST/ALT 41/47, Cr 0.90) without clinical s/sx. Patient completed 24h IV magnesium for seizure ppx and had rapid improvement of BP with resumption of oral nifedipine 30mg XR BID. Autodiuresis noted throughout admission with robust UOP. Patient was discharged to home on HD3 with all symptoms resolved and sustained blood pressure control, planned short interval f/u in office 1wk. No postopartum or postoperative issues identified at time of this admission. Status at Discharge Cognitive/behavioral status at discharge: oriented Functional status at discharge: independent ambulation Overall status at discharge: patient is back to baseline Time Spent with Patient Time spent: Less than 30 minutes Exam Const General: cooperative and comfortable Nutritional Appearance: average body habitus Orientation: alert, awake and oriented x3 Limitations: mental status not altered Resp Effort & Inspection: normal respiratory effort and able to speak in complete sentences Cardio Pulses: normal peripheral pulses GI Other: pfannensteil incision healing well, c/d/i Other: deferred Skin General: no rashes or lesions noted Neuro General: patient alert, patient awake and patient oriented x3 Extrem General: normal to inspection Psych Mental Status: mental status grossly normal Judgment: judgment good Objective Labs 02/23/24 05:53 02/23/24 05:53 Labs: Laboratory Results - last 24 hr 02/22/24 02/22/24 02/23/24 10:12 16:00 05:53 WBC 10.5 RBC 4.23 Hgb 11.7 L Hct 35.5 L MCV 84.1 MCH 27.6 MCHC 32.9 RDW 15.3 H Plt Count 661 H Neut % (Auto) 72.4 Lymph % (Auto) 18.1 L Charles % (Auto) 7.2 Eos % (Auto) 1.7 L Baso % (Auto) 0.6 Neut # (Auto) 7600 H Lymph # (Auto) 1900 Charles # (Auto) 800 Eos # (Auto) 200 Baso # (Auto) 100 Sodium 125 L 133 L Potassium 3.5 3.9 Chloride 97 L 105 Carbon Dioxide 24 24 BUN 10 9 Creatinine 0.79 0.70 Estimated GFR > 60 > 60 BUN/Creatinine Ratio 12.7 12.9 Glucose 134 H 96 Calcium 5.9 L* 6.9 L Magnesium 7.4 H* Total Bilirubin 0.5 0.5 AST 35 26 ALT 41 H 36 H Alkaline Phosphatase 135 H 112 Total Protein 7.0 6.9 Albumin 3.5 3.6 Globulin 3.5 3.3 Albumin/Globulin Ratio 1.0 1.1 [facility] Medical History (Updated 02/22/24 @ 16:39 by Tuan Faye MD) Yeast infection Surgical History (Updated 12/07/23 @ 14:37 by Katrin English, RN) [place] teeth extracted History of ankle surgery History of tonsillectomy and adenoidectomy Family History (Updated 12/07/23 @ 14:43 by Katrin English, RN) Mother Hypothyroidism Hypertension Uncle Diabetes mellitus Sister Hypertension Hypothyroidism Gestational diabetes Father Skin cancer Grandfather Melanoma Social History marital status: number of children: 0 household members: spouse lives independently: Yes caregiver/support person: Yes housing: house pets and animals: Yes (dog) education level: college (bachelor's degree) occupational status: employed (Active duty [employer]) current occupational exposures/hazards: No special cheyanne needs: No travel history: recent (Move from [place]) seatbelt use: always water heater temp set < 120 deg: Yes working smoke detector in home: Yes fire extinguisher in home: No carbon monox detector in home: Yes firearms in home: Yes firearms unloaded and locked: Yes do you feel safe at home: Yes Smoking Status: Former smoker Tobacco: How many years used: 6 (off and on) second hand exposure: No alcohol intake: former (typically 1-2/week when not , occasionally more) substance use type: does not use during the past year weight has: remained stable (prior to ) well-balanced diet: daily or most days daily servings fruits/ve-4 caffeine: Yes (decaf coffee) Type(s) of exercise: walking frequency: daily Discharge Assessment & Plan Assessment and Plan Assessment: 43yo s/p readmission for preE with severe features Plan of Treatment: s/p 24h IV magnesium gtt for seizure ppx continue PO antihypertensive regimen, nifedipine 30mg XR BID strict precautions reviewed short interval f/u in office Discharge Plan Discharge Plan Patient Disposition: Home Provider Discharge Comment: Take blood pressure twice daily, notify your provider if persistent values of systolic BP (top number) greater than 140 or if diastolic BP (bottom number) is greater than 90 Discharge orders & Medications Prescriptions: New (DME) Blood Pressure Cuff Misc See Rx Instructions .Route Qty: 1 0RF Rx Instructions: As directed Continued senna 8.6 mg capsule 8.6 mg PO DAILY PRN (Reason: constipation) Qty: 14 0RF ibuprofen 800 mg tablet 800 mg PO Q8H Qty: 30 0RF ferrous gluconate 324 mg (37.5 mg iron) tablet 324 mg PO DAILY Qty: 90 3RF PNV cmb#95-ferrous fumarate-FA [ Multivitamins] 28 mg iron- 800 mcg tablet 1 tab PO DAILY (DME) breast pump Device See Rx Instructions .ROUTE .MEDSUPPLY Qty: 1 0RF Rx Instructions: double electric breast pump No Action nifedipine 30 mg tablet extended release 24hr 30 mg PO BID Qty: 60 3RF Follow up/Referrals: Amena Larry MD [Physician] - 02/28/24 11:30 am (Please arrive for scheduled appointment at 11:30 am, thank you!) Visit Report/Discharge Packet Stand Alone Forms: Patient Portal/API, Stroke Signs & Symptoms Discharge Data Primary Care Provider: Aditi Resendez
[2024-02-23] MEDS: NIFEdipine 30 MG TAB ER PO (09:41)
== END 2024-02-23 10:25 | disposition home or self-care (01) | DRG 776 ==
PROVIDERS: Obstetrics & Gynecology; Admitting Provider Obstetrics & Gynecology; Referring Provider Obstetrics & Gynecology; Visit Provider Obstetrics & Gynecology
DX: O14.15 Severe pre-eclampsia, complicating the puerperium (principal); O99.893 Other specified diseases and conditions complicating puerperium; R74.01 Elevation of levels of liver transaminase levels; L29.89 Other pruritus
CPT/HCPCS: 36415; 80053; 83735; 84550; 85025; G0379; J0360; J3475